=== PATIENT | female | born 1945 ===

== ENCOUNTER 2018-04-26 04:51 | Day surgery (SDC) | payer OTHER ==
[~2018-04-26 04:51] MED LIST: PAXIL20 MG PO; TRIMETHOPRIM100 MG PO; ULTRACET PO; XANAX1 MG PO
[2018-04-26] MEDS ORDERED: MACROBID 100 M100 MG PO (10:43)
[2018-04-26] MEDS ORDERED: ULTRACET PO (10:43)
== END 2018-04-26 13:20 | disposition home or self-care (01) ==
LOC: CIR.AMB 04:51
DX: N82.0 Vesicovaginal fistula (principal)